=== PATIENT | male | born 1960 | race Caucasian/White ===

== ENCOUNTER → 2017-04-18 | Outpatient (CLI) | payer OTHER ==
--- NOTE | 2017-04-18 13:07 | KCIC ---
Examination: MRI of the right knee without contrast HISTORY: History of subacute strain of the right knee COMPARISON: None TECHNIQUE: Multiplanar, multisequence MR imaging of the right knee was performed without contrast. FINDINGS: The anterior cruciate ligament, posterior cruciate ligament are intact. There is mild increased T2 signal identified in the anterior cruciate ligament probably mild mucoid degeneration. There is blunting of the junction of the body and posterior horn of the medial meniscus in the peripheral portion, best visualized on series 6 image #8 likely tear. The lateral meniscus is intact. The medial collateral ligament is intact. The lateral collateral ligamentous complex including the the fibular collateral ligament, biceps femoris tendon, popliteus tendon appear intact. The extensor mechanism is intact. There is complete cartilage loss identified at the junction of the weightbearing portion and posterior flexion zone of the lateral femoral condyle measuring 1.2 cm in transverse dimension. There is the fissuring of cartilage with thinning of cartilage in the weightbearing portion of the medial femoral condyle. There is superficial fraying of cartilage identified in the lateral patellar facet. There is deep fissuring of cartilage identified in the medial patellar facet. The medial retinaculum, lateral retinaculum appear intact. Moderate knee joint effusion identified. The visualized neurovascular bundle grossly appears unremarkable. The extensor mechanism is intact. Small subchondral cysts identified in the region of the tibial spine. Impression: 1. Blunting of the junction of the body and posterior horn of the medial meniscus in the peripheral portion, best visualized on series 6 image #8 likely tear. 2. Cartilage loss identified at the junction of the weightbearing and posterior flexion zone of the lateral femoral condyle with deep fissuring of cartilage identified in the weightbearing portion of the medial femoral condyle. Deep fissuring of cartilage identified in the medial left facet. 3. Moderate knee joint effusion. 4. Mild increased signal identified in anterior cruciate ligament likely mild mucoid degenerative changes. Electronically signed by: Bran Strange MD (04/18/2017 1:04 PM) [facility]
== END | disposition home or self-care (01) ==
LOC: KCIC MRI 11:20
PROVIDERS: ATTEND Physical Medicine & Rehabilitation
DX: M17.11 Unilateral primary osteoarthritis, right knee (principal); M25.461 Effusion, right knee
CPT/HCPCS: 73721

== ENCOUNTER 2021-05-12 06:36 | Day surgery (SDC) | payer OTHER ==
[~2021-05-12] VITALS: Ht 190.5 cm; Wt 91.0 kg
[~2021-05-12 06:36] MED LIST: HYDROmorphone 2 MG/ML VIAL IVP PRN; IV RINGERS,LACTATED 1000ML 1,000 ML IV SCH; MORPHINE SULFATE 2 MG/ML INJ. IVP PRN; PROCHLORPERAZINE 10 MG/2 ML VIAL. IVP PRN; fentaNYL PF VIAL 100 MCG/2 ML VIAL IVP PRN
[2021-05-12 07:19] VITALS: BP 132/68
[2021-05-12] MEDS ORDERED: BUPIVACAINE-EPI 0.5% 30 ML VIAL KIT. ONE ×2 (07:29)
[2021-05-12] MEDS ORDERED: PROPOFOL 10 MG/ML (20ML) VIAL. IV ONE (07:54)
[2021-05-12] MEDS ORDERED: LIDOCAINE 2% PF 5 ML VIAL. ONE (07:54)
[2021-05-12] MEDS ORDERED: fentaNYL PF VIAL 100 MCG/2 ML VIAL ONE (07:55)
[2021-05-12] MEDS ORDERED: MIDAZOLAM HCL/PF 2 MG/2 ML VIAL. ONE (07:56)
[2021-05-12] MEDS ORDERED: KETOROLAC 30 MG/ML VIAL. ONE (08:51)
[2021-05-12] MEDS ORDERED: DEXAMETHASONE SOD PHOS 4 MG/ML VIAL ONE (08:51)
[2021-05-12] MEDS ORDERED: ONDANSETRON PF 4 MG/2 ML VIAL. ONE (08:51)
[2021-05-12] MEDS ORDERED: SEVOFLURANE 61 TO 120 MINUTES. IH ONE (08:57)
[2021-05-12] MEDS ORDERED: HYDR-2765 PO (09:47)
--- NOTE | 2021-05-12 09:49 | PDOC4 ---
OPERATIVE NOTE: SURGERY DATE: May 12, 2021 SURGERY PERFORMED: Right knee arthroscopy with arthroscopic partial medial meniscectomy with tricompartmental degenerative chondromalacia POST-OPERATIVE DIAGNOSIS: Right knee medial meniscus tear with tricompartmental degenerative chondromalacia SURGEON: Rao Renae D.O. SPORTS DOCTOR: None EBL: <50cc SPECIMEN: None IMPLANTS: None GROSS FINDINGS: Complex retear of the medial meniscus at the posterior horn and body. Grade II-III chondromalacia medial compartment, grade I chondromalacia patellofemoral compartment, grade II chondromalacia lateral compartment. ANESTHESIA: General PROCEDURE: After obtaining full and informed consent from the patient, patient was brought to the operating room and placed on the table in the supine position. General anesthesia was induced without complication. Perioperative antibiotics were used. The tourniquet was placed around the proximal thigh. Timeout was observed. The knee was then prepped and draped in the normal sterile fashion. Standard thigh post was used. Anterolateral and anteromedial portals were established for diagnostic arthroscopy. The Joint was insufflated with saline using an arthroscopic cannula. We visualized the suprapatellar pouch, the patellofemoral articulation, the medial and lateral gutter, the medial and lateral compartment, and the intercondylar notch. The above noted gross findings were encountered. The articular chondral surfaces were stable although showing degenerative changes. We then addressed the medial meniscus tear. Using basket forceps and a motorized shaver the medial meniscus was debrided back to a stable rim and further contoured with a motorized shaver. At the conclusion of the procedure, the arthroscopic equipment was removed. The incisions were injected with 0.25% Marcaine and then closed. Sterile dressings were placed. Sponge and needle counts were noted to be correct. The patient tolerated the procedure well and there were no complications. The patient was awakened in the operating room before being transferred to the recovery room in stable condition. DISPOSITION: TO PACU STABLE PROGNOSIS: FAIR. Although there is concern of progression of chondral changes over time. KVNG RENAE DO May 12, 2021 9:49 am
[2021-05-12 10:00] VITALS: BP 129/71
[2021-05-12] MEDS ORDERED: HYDROcodone/APAP 7.5/325MG 1 TAB TABLET PO ONE (10:00)
== END 2021-05-12 10:40 | disposition home or self-care (01) ==
LOC: SURG 06:36
PROVIDERS: ATTEND Orthopaedic Surgery
DX: S83.241A Other tear of medial meniscus, current injury, right knee, initial encounter (principal); M94.261 Chondromalacia, right knee; Z79.899 Other long term (current) drug therapy; Z98.890 Other specified postprocedural states; X58.XXXA Exposure to other specified factors, initial encounter; Y93.89 Activity, other specified; Y92.89 Other specified places as the place of occurrence of the external cause; Y99.8 Other external cause status
CPT/HCPCS: 29881; A4930; J0690; J1100; J1885; J2250; J2405; J2704; J3010; A4223